=== PATIENT | male | born 1970 | race Caucasian/White ===

== ENCOUNTER 2019-06-28 06:46 | Day surgery (SDC) | payer BC ==
[~2019-06-28] VITALS: Ht 170.2 cm; Wt 68.0 kg
[~2019-06-28 06:46] MED LIST: CYCLOBENZAPRINE10 MG PO; HYDROCODON-ACE1 EAC7 PO
[2019-06-28 07:31] VITALS: BP 131/75; Ht 170.2 cm; Wt 68.0 kg
[2019-06-28] MEDS ORDERED: HYDROCODON-ACE1 EA10 PO (10:46)
--- NOTE | 2019-06-28 11:16 | NUR ---
OPA IN AIRWAY ON ADMIT
--- NOTE | 2019-06-30 15:58 | OP ---
PATIENT NAME: RAND ORTA MEDICAL RECORD: [id number] :66 LOCATION:[facility] ADMISSION DATE: SURGEON: NARINDER MCKENZIE MD DATE OF OPERATION: 06/28/2019 PREOPERATIVE DIAGNOSES: Impingement syndrome of the right shoulder. POSTOPERATIVE DIAGNOSES: Impingement syndrome of the right shoulder. PROCEDURES: 1. Right shoulder arthroscopic distal clavicle excision done through separate incision - 1 cm. 2. Arthroscopic subacromial decompression with acromioplasty and bursectomy. SURGEON: Narinder Mckenzie MD ANESTHESIA: General. INTRAOPERATIVE COMPLICATIONS: None. SUMMARY OF PATHOLOGIC FINDINGS: The patient was indeed found to have severe impingement with acromioclavicular arthritis. No rotator cuff tearing was noted. Intraarticularly the patient looked relatively good. OPERATIVE SUMMARY IN DETAIL: After obtaining the appropriate preoperative orthopedic surgery consent as well as anesthetic consultation, evaluation, and clearance, the patient was brought to the operating room and placed on the operating table in supine position. After general laryngeal mask airway was administered, the patient was placed in left lateral decubitus position. All pressure points were well padded to include leg peroneal pad as well as axillary roll. He was held firmly to the operating table using the vacuum pack suction system. The right upper extremity and shoulder were then prepped and draped in routine sterile fashion. The arm was held in the Arthrex traction boom at 30 degrees of forward flexion, 30 degrees of abduction, 10 pounds of traction laterally. After the appropriate timeout was taken of the patient identifiers and agreed upon by all, arthroscopy was established in the glenohumeral joint using a routine posterior approach. Diagnostic arthroscopy of the glenohumeral joint showed no arthritis, mild fraying of the labrum was noted and no specific biceps tendinitis was seen. Attention was then turned to the subacromial space. Accessory lateral portal was created through which the Milburn tissue ablation system was utilized to denude the undersurface of the acromion, all soft tissue elements and released the coracoacromial ligament. A 5-0 barrel bur was used to perform acromioplasty at the level of acromioclavicular joint and through a separate anterior arthroscopic portal, under direct arthroscopic visualization, a 5.0 barrel bur was used to perform a distal clavicle excision for 1 cm. Having completed this, the residual bursa was taken down superiorly, anteriorly, laterally as well as posteriorly. Having completed this, arthroscopy portals were closed in routine interrupted fashion using 4-0 Prolene. Sterile dressings were applied. The patient was awakened and taken to recovery room in stable condition. OPERATIVE REPORT [id number] RAND ORTA All final needle and sponge counts were correct. TRANSINT:[id number] Voice Confirmation ID: [id number] DOCUMENT ID: [id number] MAGALY VILLAFUERTE, NARINDER MARTE at 1558 CC: [id number] DICTATION DATE: 06/28/19 1049 APPLICATION DEVELOPMENT SPECIALIST: 06/28/19 1854 [facility] 06/28/19 [facility] [address] [place] [address]
== END 2019-06-28 13:00 | disposition home or self-care (01) ==
LOC: D.OPS 06:46 → D.PAN 09:30 → D.OPS 09:45 → D.PAN 10:00 → D.OPS 11:35 → D.PAN 11:35 → D.OPS 13:00 → D.PAN 15:15 → D.OPS 15:15
PROVIDERS: ATTEND Orthopaedic Surgery
DX: M75.41 Impingement syndrome of right shoulder (principal)